=== PATIENT | female | born 1975 | race Two or more races ===

== ENCOUNTER 2019-05-06 09:45 | Outpatient (CLI) | payer OTHER | END 2019-05-06 09:55 | disposition home or self-care (01) | LOC: SONOGRAMA 09:45 | DX: N60.01 Solitary cyst of right breast (principal) ==

== ENCOUNTER 2019-10-10 12:40 | Outpatient (CLI) | payer OTHER | END 2019-10-10 13:30 | disposition home or self-care (01) | LOC: SONOGRAMA 12:40 | DX: N60.11 Diffuse cystic mastopathy of right breast (principal); N60.12 Diffuse cystic mastopathy of left breast ==

== ENCOUNTER 2021-06-17 11:16 | Outpatient (CLI) | payer OTHER | END 2021-06-18 12:56 | disposition home or self-care (01) | LOC: SONOGRAMA 11:16 | PROVIDERS: ATTEND Surgery | DX: N60.11 Diffuse cystic mastopathy of right breast (principal); N60.12 Diffuse cystic mastopathy of left breast ==

== ENCOUNTER 2025-05-16 09:16 | Outpatient (CLI) | payer OTHER | END 2025-05-16 09:24 | disposition home or self-care (01) | LOC: SONOGRAMA 09:16 | PROVIDERS: ATTEND General Practice | DX: N64.4 Mastodynia (principal) ==